=== PATIENT | female | born 1995 | race Caucasian/White ===

== ENCOUNTER → 2016-07-08 | Outpatient (CLI) | payer BC, OTHER ==
--- NOTE | 2016-07-08 11:51 | DIAGNOSTIC IMAGING REPORT ---
LEFT ANKLE MIN 3 VIEWS CLINICAL HISTORY: Left ankle pain following injury. COMPARISON: Left ankle radiograph March 25, 2014. FINDINGS: Alignment of the left ankle is anatomic. Talar dome is intact. There is no acute fracture. There is moderate anterolateral ankle soft tissue swelling. IMPRESSION: 1. No acute fracture or dislocation of the left ankle. 2. Moderate anterolateral ankle soft tissue swelling. Electronically signed by: Valentino Cisneros M.D. 07/08/2016 11:50 AM Dictated Date/Time: 07/08/2016 11:49 AM
== END | disposition home or self-care (01) ==
LOC: C.RDSM 11:15
PROVIDERS: ATTEND Family Medicine
DX: M25.572 Pain in left ankle and joints of left foot (principal)